=== PATIENT | male | born 1955 ===

== ENCOUNTER 2016-06-21 19:16 | Emergency (ER) | payer OTHER ==
[~2016-06-21] VITALS: Ht 175.3 cm; Wt 102.3 kg
[2016-06-21] MEDS ORDERED: LISI-661 PO (19:25)
[2016-06-21] MEDS ORDERED: FAMO20 PO (19:25)
[2016-06-21] MEDS ORDERED: ASPI81 PO (19:25)
[2016-06-21] MEDS ORDERED: PERTUSS(ACELL),DIPH,TET VAC/PF 0.5 ML VIAL IM ONE (23:00)
[2016-06-21 23:17] VITALS: BP 149/87
== END 2016-06-21 23:18 | disposition home or self-care (01) ==
LOC: EMS 19:20
DX: L03.211 Cellulitis of face (principal); I10 Essential (primary) hypertension; K21.9 Gastro-esophageal reflux disease without esophagitis; Z79.82 Long term (current) use of aspirin
CPT/HCPCS: 90471; 90715; 99283